=== PATIENT | female | born 1965 | race Caucasian/White ===

== ENCOUNTER 2016-07-20 11:42 | Outpatient (CLI) ==
[2012-10-28 20:28] VITALS: TEMP 98.5
[2016-05-17 21:36] VITALS: BMI 27.8
[2016-07-20 12:55] LABS: BASOPHILS # (AUTO) 0.1 K/uL (0-0.2); BASOPHILS % (AUTO) 0.7 % (0.0-3.0); EOSINOPHILS # (AUTO) 0.2 K/ul (0.0-0.7); EOSINOPHILS % (AUTO) 2.1 % (0.0-7.0); HEMATOCRIT 44.2 % (37.0-47.0); HEMOGLOBIN 15.3 g/dl (12.0-16.0); IMMATURE GRANULOCYTE % (AUTO) 0.4 % (0.0-5.0); LYMPHOCYTES # (AUTO) 2.5 K/uL (0.60-3.4); LYMPHOCYTES % (AUTO) 32.6 (10.0-50.0); MEAN CORPUSCULAR HEMOGLOBIN 30.1 pg (27.0-31.0); MEAN CORPUSCULAR HGB CONC 34.6 (31.8-35.4); MONOCYTES # (AUTO) 0.4 K/uL (0.4-2.0); MONOCYTES % (AUTO) 5.8 (0-10); NEUTROPHILS # (AUTO) 4.4 K/ul (2.0-6.9); NEUTROPHILS % (AUTO) 58.4; PLATELET COUNT 225 10^3/uL (140-440); RED BLOOD COUNT 5.08 10^6/ul (4.20-5.40); WHITE BLOOD COUNT 7.58 K/ul (4.6-10.2)
[2016-07-20 13:10] LABS: ALBUMIN 3.9 g/dL (3.4-5.0); ALBUMIN/GLOBULIN RATIO 1.11; ANION GAP 16.9; BILIRUBIN,TOTAL 0.83 mg/dL (0.00-1.20); BUN/CREATININE RATIO 15.94; CALCIUM 9.6 mg/dL (8.2-10.2); CHOL/HDL RATIO 4.2 (4.5-5.5); CREATININE 0.69 mg/dL (0.60-1.30); POTASSIUM 3.9 mmol/L (3.5-5.10); TOTAL PROTEIN 7.4 g/dL (6.4-8.2)
== END 2016-07-20 11:43 | disposition home or self-care (01) ==
LOC: LAB 11:42
PROVIDERS: ATTEND Nurse Practitioner Family
DX: E11.65 Type 2 diabetes mellitus with hyperglycemia (principal); E11.40 Type 2 diabetes mellitus with diabetic neuropathy, unspecified; E78.5 Hyperlipidemia, unspecified
CPT/HCPCS: 36415; 80053; 80061; 83036; 85025

== ENCOUNTER 2016-07-23 11:35 | Outpatient (CLI) ==
[2012-10-28 20:28] VITALS: TEMP 98.5
[2016-05-17 21:36] VITALS: BMI 27.8
== END 2016-07-23 11:36 | disposition home or self-care (01) ==
LOC: LAB 11:35
PROVIDERS: ATTEND Nurse Practitioner Family
DX: R74.8 Abnormal levels of other serum enzymes (principal)
CPT/HCPCS: 36415; 80074

== ENCOUNTER 2016-08-07 12:11 | Outpatient (CLI) ==
[2012-10-28 20:28] VITALS: TEMP 98.5
[2016-05-17 21:36] VITALS: BMI 27.8
--- NOTE | 2016-08-07 13:47 | DI ---
EXAM: Radiographs, paranasal sinus HISTORY: Chronic sinusitis. COMPARISON: None available. TECHNIQUE: Three-view. FINDINGS/IMPRESSION: Paranasal sinuses are clear. No facial fracture identified.
== END 2016-08-07 12:12 | disposition home or self-care (01) ==
LOC: RAD 12:11
PROVIDERS: ATTEND Otolaryngology
DX: J32.0 Chronic maxillary sinusitis (principal)

== ENCOUNTER 2016-10-26 09:56 | Outpatient (CLI) | payer OTHER ==
[2012-10-28 20:28] VITALS: TEMP 98.5
[2016-05-17 21:36] VITALS: BMI 27.8
[2016-10-26 13:00] LABS: BASOPHILS # (AUTO) 0.1 K/uL (0-0.2); BASOPHILS % (AUTO) 0.8 % (0.0-3.0); EOSINOPHILS # (AUTO) 0.1 K/ul (0.0-0.7); EOSINOPHILS % (AUTO) 1.4 % (0.0-7.0); HEMATOCRIT 45.6 % (37.0-47.0); HEMOGLOBIN 15.8 g/dl (12.0-16.0); IMMATURE GRANULOCYTE % (AUTO) 0.3 % (0.0-5.0); LYMPHOCYTES # (AUTO) 2.3 K/uL (0.60-3.4); LYMPHOCYTES % (AUTO) 23.4 (10.0-50.0); MEAN CORPUSCULAR HEMOGLOBIN 30.7 pg (27.0-31.0); MEAN CORPUSCULAR HGB CONC 34.6 (31.8-35.4); MEAN CORPUSCULAR VOLUME 88.5 fl (81.0-99.0); MONOCYTES # (AUTO) 0.5 K/uL (0.4-2.0); MONOCYTES % (AUTO) 4.7 (0-10); NEUTROPHILS # (AUTO) 6.9 K/ul (2.0-6.9); NEUTROPHILS % (AUTO) 69.4; PLATELET COUNT 239 10^3/uL (140-440); RED BLOOD COUNT 5.15 10^6/ul (4.20-5.40); WHITE BLOOD COUNT 9.87 K/ul (4.6-10.2)
[2016-10-26 13:32] LABS: ALBUMIN/GLOBULIN RATIO 1.11; ANION GAP 14.9; BILIRUBIN,TOTAL 1.56 mg/dL (0.00-1.20); BUN/CREATININE RATIO 25.71; CALCIUM 9.9 mg/dL (8.2-10.2); CHOL/HDL RATIO 3.5 (4.5-5.5); CREATININE 0.7 mg/dL (0.60-1.30); POTASSIUM 3.9 mmol/L (3.5-5.10); TOTAL PROTEIN 7.6 g/dL (6.4-8.2)
== END 2016-10-26 09:57 | disposition home or self-care (01) ==
LOC: LAB 09:56
PROVIDERS: ATTEND Nurse Practitioner Family
DX: E11.65 Type 2 diabetes mellitus with hyperglycemia (principal); E11.40 Type 2 diabetes mellitus with diabetic neuropathy, unspecified; E78.5 Hyperlipidemia, unspecified; R74.8 Abnormal levels of other serum enzymes
CPT/HCPCS: 36415; 80053; 80061; 83036; 85025

== ENCOUNTER 2016-10-30 10:20 | Outpatient (CLI) | payer OTHER ==
[2012-10-28 20:28] VITALS: TEMP 98.5
[2016-05-17 21:36] VITALS: BMI 27.8
--- NOTE | 2016-10-31 09:29 | MAMMO ---
EXAM: Bilateral digital screening mammogram History: Screening Comparison: Bilateral mammogram 03/09/2014 Findings: MLO and CC views of bilateral breasts demonstrate scattered fibroglandular breast parench yma. There are no dominant masses, no suspicious microcalcifications and no architectural distortio ns Impression: Stable negative mammogram. Recommend followup routine screening mammography in 1 year. BIRADS 1
== END 2016-10-30 10:21 | disposition home or self-care (01) ==
LOC: RAD 10:20
PROVIDERS: ATTEND Nurse Practitioner Family
DX: Z12.31 Encounter for screening mammogram for malignant neoplasm of breast (principal)

== ENCOUNTER 2017-02-12 12:54 | Outpatient (CLI) ==
[2012-10-28 20:28] VITALS: TEMP 98.5
[2016-05-17 21:36] VITALS: BMI 27.8
[2017-02-12 13:10] LABS: BASOPHILS % (AUTO) 0.6 % (0.0-3.0); EOSINOPHILS % (AUTO) 0.4 % (0.0-7.0); HEMATOCRIT 41.4 % (37.0-47.0); HEMOGLOBIN 14.6 g/dl (12.0-16.0); IMMATURE GRANULOCYTE % (AUTO) 0.4 % (0.0-5.0); LYMPHOCYTES # (AUTO) 1.8 K/uL (0.60-3.4); LYMPHOCYTES % (AUTO) 25.7 (10.0-50.0); MEAN CORPUSCULAR HEMOGLOBIN 30.5 pg (27.0-31.0); MEAN CORPUSCULAR HGB CONC 35.3 (31.8-35.4); MEAN CORPUSCULAR VOLUME 86.4 fl (81.0-99.0); MONOCYTES # (AUTO) 0.3 K/uL (0.4-2.0); MONOCYTES % (AUTO) 4.6 (0-10); NEUTROPHILS # (AUTO) 4.9 K/ul (2.0-6.9); NEUTROPHILS % (AUTO) 68.3; PLATELET COUNT 200 10^3/uL (140-440); RED BLOOD COUNT 4.79 10^6/ul (4.20-5.40); WHITE BLOOD COUNT 7.16 K/ul (4.6-10.2)
[2017-02-12 13:23] LABS: ALBUMIN 3.6 g/dL (3.4-5.0); ALBUMIN/GLOBULIN RATIO 1.2; BILIRUBIN,TOTAL 1.04 mg/dL (0.00-1.20); BUN/CREATININE RATIO 19.11; CALCIUM 9.1 mg/dL (8.2-10.2); CHOL/HDL RATIO 3.8 (4.5-5.5); CREATININE 0.68 mg/dL (0.60-1.30); TOTAL PROTEIN 6.6 g/dL (6.4-8.2)
== END 2017-02-12 12:55 | disposition home or self-care (01) ==
LOC: LAB 12:54
PROVIDERS: ATTEND Nurse Practitioner Family
DX: E78.5 Hyperlipidemia, unspecified (principal); E11.65 Type 2 diabetes mellitus with hyperglycemia; F32.9 Major depressive disorder, single episode, unspecified
CPT/HCPCS: 36415; 80053; 80061; 83036; 85025

== ENCOUNTER 2017-04-05 12:49 | Outpatient (CLI) ==
[2012-10-28 20:28] VITALS: TEMP 98.5
[2016-05-17 21:36] VITALS: BMI 27.8
[2017-04-05 13:21] LABS: ADD URINE MICROSCOPIC YES; BILIRUBIN,URINE Negative (NEGATIVE); KETONES,URINE Negative (NEGATIVE); LEUKOCYTE ESTERASE ,URINE Negative (NEGATIVE); NITRITE,URINE Negative (NEGATIVE); PROTEIN,URINE Negative (NEGATIVE); URINE, BLOOD Trace-intact (NEGATIVE)
[2017-04-05 13:31] LABS: ALBUMIN 3.5 g/dL (3.4-5.0); ALBUMIN/GLOBULIN RATIO 0.95; ANION GAP 10.9; BACTERIA,URINE TRACE (NOT PRESENT); BILIRUBIN,TOTAL 0.43 mg/dL (0.00-1.20); BUN/CREATININE RATIO 18.66; CALCIUM 9.4 mg/dL (8.2-10.2); CREATININE 0.75 mg/dL (0.60-1.30); POTASSIUM 3.9 mmol/L (3.5-5.10); TOTAL PROTEIN 7.2 g/dL (6.4-8.2)
--- NOTE | 2017-04-05 13:37 | DI ---
EXAM: KUB HISTORY: Difficulties with micturition FINDINGS: Several punctate calcifications over the anatomic pelvis bilaterally may represent phlebol iths. Linear calcifications inferior to the sacroiliac joints probably vascular in nature. No defin ite calcifications are seen over the renal silhouettes. Normal bowel gas pattern. No excessive feca l retention. Degenerative changes of the lumbosacral junction. IMPRESSION: No definite etiology for the patient's symptoms radiographically.
== END 2017-04-05 12:50 | disposition home or self-care (01) ==
LOC: LAB 12:49
PROVIDERS: ATTEND Nurse Practitioner Family
DX: R39.198 Other difficulties with micturition (principal); R81 Glycosuria; H53.8 Other visual disturbances; R42 Dizziness and giddiness
CPT/HCPCS: 36415; 80053; 81001

== ENCOUNTER 2017-06-10 12:45 | Outpatient (CLI) ==
[2012-10-28 20:28] VITALS: TEMP 98.5
[2016-05-17 21:36] VITALS: BMI 27.8
== END 2017-06-10 12:46 | disposition home or self-care (01) ==
LOC: LAB 12:45
PROVIDERS: ATTEND Nurse Practitioner Family
DX: E11.65 Type 2 diabetes mellitus with hyperglycemia (principal); E11.40 Type 2 diabetes mellitus with diabetic neuropathy, unspecified; E78.5 Hyperlipidemia, unspecified
CPT/HCPCS: 36415; 80053; 80061; 83036

== ENCOUNTER 2017-06-14 10:46 | Outpatient (CLI) ==
[2012-10-28 20:28] VITALS: TEMP 98.5
[2016-05-17 21:36] VITALS: BMI 27.8
--- NOTE | 2017-06-14 11:26 | CT ---
EXAM: CT chest without contrast HISTORY: Cough COMPARISON: Chest x-ray 05/18/2014 and multiple priors TECHNIQUE: Serial axial images of the chest were obtained from the lung apices to the upper abdomen without contrast. These were viewed in multiple planes. FINDINGS: The thyroid is normal. The visualized vessels demonstrate mild atherosclerotic disease wi thout aneurysm or stenosis. The heart is normal in size without pericardial effusion. There are mul tiple nonpathologically enlarged lymph nodes. No axillary lymphadenopathy is present. There is no pneumothorax or pleural effusion. There is no consolidation, nodule or mass. The airway s are patent. Limited views of the soft tissues in the upper abdomen demonstrate prior cholecystectomy. The osseou s structures demonstrate mild degenerative disease of the spine. IMPRESSION: 1. No acute cardiopulmonary process or consolidation to account for patient's symptoms. 2. Prior cholecystectomy
== END 2017-06-14 10:47 | disposition home or self-care (01) ==
LOC: RAD 10:46
PROVIDERS: ATTEND Nurse Practitioner Family
DX: R05 Cough (principal); F17.200 Nicotine dependence, unspecified, uncomplicated

== ENCOUNTER 2017-07-19 10:42 | Outpatient (CLI) ==
[2012-10-28 20:28] VITALS: TEMP 98.5
[2016-05-17 21:36] VITALS: BMI 27.8
--- NOTE | 2017-07-19 13:30 | MRI ---
EXAM: Brain MRI without contrast. HISTORY: Amnesia. COMPARISON: None. TECHNIQUE: Multiplanar, multisequence MR images were acquired of the brain without contrast. FINDINGS: The midline structures are central and the craniocervical junction is unremarkable. The ve ntricles, sulci and cisterns are generally prominent compatible with age related involutional changes . There is a small acute infarct with diffusion restriction and bright T2 signal in the left frontal pe riventricular white matter, a small grouping of acute infarcts in the posterior superior right fronta l lobe, a moderate acute right parieto-occipital lobe infarct with local sulcal effacement and a smal l amount of hyperintense T1, intermediate T2 signal and minor blooming on the gradient echo signal se quence compatible with petechial hemorrhage. There are also small foci of subacute ischemia with fad ing diffusion restriction and mild bright T2 signal in the anterior superior right frontal lobe (imag e #16), possibly anterior superior left frontal lobe (image #18), right cerebellum (image #6) and med ial left middle cerebellar peduncle. A few scattered T2 / FLAIR hyperintensities are present in the s upratentorial white matter compatible with minimal leukomalacia. There are chronic lacunes in the ri ght basal ganglia, left posterior parietal periventricular white matter and left parietal subcortical white matter extending to the atrial trigone. The corpus callosum has a normal configuration. The p ituitary gland is unremarkable. There are no intraorbital masses. Paranasal sinuses are clear. There is mucosal thickening and flui d in a moderate number of the left mastoid air cells and a minor number of the right. Mild adenoidal hypertrophy is present with several nasopharyngeal submucosal cyst. Flow voids are present in the major intracranial arteries and dural venous sinuses. IMPRESSION: 1. Moderate acute right parieto-occipital infarct with mild hemorrhagic conversion, small acute infa rct left frontal periventricular white matter and small grouping of acute infarcts posterior superior right frontal lobe. Critical results discussed with the emergency room physician caring for the pat ient at 1:10 p.m. and with the referring nurse practitioner's nurse at 1:06 p.m. 2. Small foci of subacute ischemia anterior superior right frontal lobe, possibly anterior superior left frontal lobe, right cerebellum and medial left middle cerebellar peduncle. 3. Chronic lacunes right basal ganglia and left posterior parietal periventricular and subcortical w hoda matter. 4. Age related involutional changes and minimal leukomalacia. 5. Moderate left and minor right mastoid disease.
== END 2017-07-19 10:43 | disposition home or self-care (01) ==
LOC: RAD 10:42
PROVIDERS: ATTEND Nurse Practitioner Family
DX: R41.3 Other amnesia (principal); R42 Dizziness and giddiness; R30.0 Dysuria; Z86.73 Personal history of transient ischemic attack (TIA), and cerebral infarction without residual deficits
CPT/HCPCS: 36415; 80053; 81001; 85025

== ENCOUNTER 2017-07-19 12:47 | Emergency (ER) ==
[2017-07-19 12:58] VITALS: BP 141/79; TEMP 97.8; BMI 26.9
--- NOTE | 2017-07-19 13:00 | ED.PDOC ---
General ED Provider: Dr. CAROLIN IBRAHIM Chief Complaint: Stroke Stated Complaint: CVA Time Seen by Physician: 12:48 (PT BROUGHT BY ATTENDING STATING HAS A POSTIVE FINDING ON MRI FOR CVA) Mode of Arrival: Wheelchair Information Source: Family, Other Exam Limitations: No limitations (AOX3 WITH HISTORY OF FREQUENT FALLS AND ERRATIC DRIVING ) Primary Care Provider: WILLIAM SAN Nursing and Triage Documentation Reviewed and Agree: Yes Reviewed sepsis parameters & appropriate labs ordered?: No System Inflammatory Response Syndrome: Not Applicable Sepsis Protocol: For patient's 13 years and over: Temp is 96.8 and below OR 101 and greater Pulse >90 BPM Resp >20/minute Acutely Altered Mental Status Are patient's symptoms suggestive of a new infection, such as: -Pneumonia -Skin, Soft Tissue -Endocarditis -UTI -Bone, Joint Infection -Implantable Device -Acute Abdominal Infection -Wound Infection -Meningitis -Blood Stream Catheter Infection -Unknown System Inflammatory Response Syndrome: Not Applicable Miscellaneous Complaint Exam - Complex/Multi-System Complaint/Exam Onset/Duration: APPROX 2 WEEKS Symptoms Are: Still present Initial Severity: Mild Current Severity: Mild Location of Pain: NO Pain Radiates to: NO Aggravating: CVA Alleviating: NONEE Associated Signs and Symptoms: Denies: Decreased responsiveness, Confusion, Agitation, Dizziness, Weakness, Syncope, Headache, Short of air, Cough, Wheezing , Hemoptysis, Chest pain, Palpitations, Edema, Nausea, Vomiting, Diarrhea, Abdominal pain, Back pain, Dysuria, Hematemesis, Melena, Decreased oral intake, Fever, Diaphoresis, Immunocompromised, Anticoagulation Therapy, Recent medication changes, Indwelling medical receptionist, Prior MRSA, Prior VRE, Recent trauma, Remote trauma Related History: Recent Illness Recent Echo/LV Function: No Respiratory Distress: None JVD Present: No Tachypnea Present: No Stridor Present: No Abdominal Findings: Present: Normal findings Glascow Coma Scale (see protocol): 15 Meningeal Signs Positive: No Focal Weakness: Present: None Focal Sensory Loss: Present: None Gait: Normal Gag Reflex Present: Yes Babinski Sign: Negative Right, Negative Left Skin Findings: Present: Normal findings Joint Swelling Present: No In-Dwelling Device Present: No Differential Diagnosis: Metabolic Abnormality Quality Indicators for Cardiac Chest Pain: EKG in 10min. Quality Indicators for AMI: EKG in 10min. Quality Indicator For Non-Traumatic Chest Pain/Syncope: EKG Performed Review of Systems - Review Of Systems Constitutional: Reports: No symptoms Eyes: Reports: No symptoms Ears, Nose, Mouth, Throat: Reports: No symptoms Respiratory: Reports: No symptoms Cardiac: Reports: No symptoms GI: Reports: No symptoms : Reports: No symptoms Musculoskeletal: Reports: No symptoms Skin: Reports: No symptoms Neurological: Reports: No symptoms Endocrine: Reports: No symptoms Hematologic/Lymphatic: Reports: No symptoms All Other Systems: Reviewed and Negative Past Medical History - Past Medical History Previously Healthy: No Endocrine: Reports: DM 2 Cardiovascular: Reports: None Respiratory: Reports: None Hematological: Reports: None Gastrointestinal: Reports: None Genitourinary: Reports: None Neuro/Psych: Reports: Anxiety, Depression Musculoskeletal: Reports: Arthritis Cancer: Reports: None Last Menstrual Period: unknown, post menopausal - Surgical History General Surgical History: Reports: None - Family History Family History: Reports: Diabetes - Social History Smoking Status: Current every day smoker, Heavy tobacco smoker Hx Substance Use: No Alcohol Screening: None Physical Exam - Physical Exam Appearance: Well-appearing, No pain distress, Well-nourished Eyes: GREGORIO, EOMI, Conjunctiva clear ENT: Ears normal, Nose normal, Oropharynx normal Respiratory: Airway patent, Breath sounds clear, Breath sounds equal, Respirations nonlabored Cardiovascular: RRR, Pulses normal, No rub, No murmur GI/: Soft, Nontender, No masses, Bowel sounds normal, No Organomegaly Musculoskeletal: Normal strength, ROM intact, No edema, No calf tenderness Skin: Warm, Dry, Normal color Neurological: Sensation intact, Motor intact, Reflexes intact, Cranial nerves intact, Alert, Oriented Psychiatric: Affect appropriate, Mood appropriate Interpretation - Radiology Interpretation Radiology Interpretation By: Radiologist Physician Notification - Case Discussed Physician Notified: SALVATORE Time of Notification: 13:40 (PT ACCEPTED BY HIM BUT MUST TALK TO HOSPITALIST) Critical Care Note - Critical Care Note Total Time (mins): 0 Course - Course Orders, Labs, Meds: Orders Category Date Time Status EKG-(ED ONLY) Stat CARDIO 07/19/17 12:57 Completed PARTIAL THROMBOPLASTIN TIME Stat LAB 07/19/17 13:05 Received PT WITH INR Stat LAB 07/19/17 13:05 Received Vital Signs: Temp Pulse Resp BP Pulse Ox 07/19/17 12:48 97.8 F 90 20 141/79 H 93 L Departure - Departure Time of Disposition: 15:00 Disposition: TSF SHORT-TRM HOSP Discharge Problem: CVA (cerebral vascular accident) Qualifiers: CVA mechanism: unspecified Qualified Code(s): I63.9 - Cerebral infarction, unspecified Instructions: Stroke (DC) Condition: Good Pt referred to PMD for follow-up: Yes IPMP verified?: No Additional Instructions: Please call your Family Physician as soon as possible to schedule a follow-up appointment. Allergies/Adverse Reactions: Allergies codeine Allergy (Mild, Verified 07/19/17 13:01) nausea Home Medications: Ambulatory Orders Hydrocodone/Acetaminophen [[place] 7.5-325 Tablet] 1 each PO BID PRN 01/10/15 Cyclobenzaprine HCl [Flexeril] 10 mg PO BID PRN 05/17/16 Gabapentin [Neurontin] 200 mg PO TID PRN 05/17/16 Butalb/Acetaminophen/Caffeine [Fioricet 50-300-40 Mg Capsule] 1 each PO Q4-6H PRN #50 08/07/16 Disposition Discussed With: Patient, Family
== END 2017-07-19 14:05 | disposition short-term general hospital (02) ==
LOC: ED 12:47
DX: I63.9 Cerebral infarction, unspecified (principal); F17.210 Nicotine dependence, cigarettes, uncomplicated; I10 Essential (primary) hypertension; E11.9 Type 2 diabetes mellitus without complications
CPT/HCPCS: 36415; 85610; 85730; 93005; 93010; 99285

== ENCOUNTER 2017-09-06 11:36 | Outpatient (CLI) ==
[2012-10-28 20:28] VITALS: TEMP 98.5
== END 2017-09-06 11:37 | disposition home or self-care (01) ==
LOC: FCC-LAB 11:36
PROVIDERS: ATTEND Nurse Practitioner Family
DX: E11.65 Type 2 diabetes mellitus with hyperglycemia (principal); E78.5 Hyperlipidemia, unspecified
CPT/HCPCS: 36415; 80053; 80061; 82150; 83037; 83690; 85025

== ENCOUNTER 2017-09-09 10:17 | Outpatient (CLI) ==
[2012-10-28 20:28] VITALS: TEMP 98.5
--- NOTE | 2017-09-09 11:35 | US ---
EXAM: Thyroid ultrasound History: Thyroid nodules. Comparison: None available. Technique: Multiple sonographic images through the thyroid gland were obtained. Color duplex Dopple r was used to interrogate vascular flow. Findings: The right lobe of the thyroid measures 5.1 cm x 1.6 cm x 1.9 cm and demonstrates a few small sub-cent imeter nodules with the largest measuring 0.4 cm. The thyroid isthmus measures 0.3 cm in thickness. The left lobe of the thyroid measures 4.6 cm x 1.7 cm x 2.1 cm and demonstrates a dominant complex no dule measuring 1.9 cm. No extrathyroidal masses are identified. The thyroid gland is not hypervascular. Impression: 1.9 cm dominant complex nodule within the left thyroid lobe.
== END 2017-09-09 10:18 | disposition home or self-care (01) ==
LOC: RAD 10:17
PROVIDERS: ATTEND Nurse Practitioner Family
DX: E04.1 Nontoxic single thyroid nodule (principal)
CPT/HCPCS: 36415; 84439; 84443

== ENCOUNTER 2017-11-13 10:47 | Outpatient (CLI) ==
[2012-10-28 20:28] VITALS: TEMP 98.5
== END 2017-11-13 10:48 | disposition home or self-care (01) ==
LOC: RHC-LAB 10:47
PROVIDERS: ATTEND Nurse Practitioner Family
DX: I63.133 Cerebral infarction due to embolism of bilateral carotid arteries (principal); E11.65 Type 2 diabetes mellitus with hyperglycemia; E78.5 Hyperlipidemia, unspecified; F41.8 Other specified anxiety disorders; Z79.899 Other long term (current) drug therapy
CPT/HCPCS: 36415; 80053; 80061; 82607; 83037; 84436; 84443; 84479; 85025; 85651

== ENCOUNTER 2018-01-30 08:08 | Outpatient (CLI) ==
[2012-10-28 20:28] VITALS: TEMP 98.5
== END 2018-01-30 08:09 | disposition home or self-care (01) ==
LOC: LAB 08:08
PROVIDERS: ATTEND Nurse Practitioner Family
DX: E11.65 Type 2 diabetes mellitus with hyperglycemia (principal); E55.9 Vitamin D deficiency, unspecified; E78.5 Hyperlipidemia, unspecified
CPT/HCPCS: 36415; 80053; 80061; 82306; 83036

== ENCOUNTER 2018-07-05 14:34 | Emergency (ER) | payer OTHER ==
[2018-07-05 14:42] VITALS: TEMP 97.6; BMI 25.7
[2018-07-05 15:13] VITALS: BP 150/82
--- NOTE | 2018-07-05 15:33 | DI ---
Exam: Single view chest x-ray. Date: 07/05/2018. Comparison: 05/18/2014. HISTORY: Cough. FINDINGS: No acute osseous abnormalities are seen. The lungs are clear. The cardiac silhouette and pulmonary vasculature are normal. Impression: No acute intrathoracic findings.
--- NOTE | 2018-07-05 15:36 | CT ---
EXAM: CT scan of head without contrast. HISTORY: TIA, cerebrovascular accident COMPARISON: MRI, 07/19/2017 TECHNIQUE: Axial scans acquired at 5 mm slice thicknesses. Coronal and sagittal sequence completed FINDINGS: There is no intra or extra-axial hemorrhage seen. No mass or shift of midline structures is seen. There is some mild cortical atrophy involving the frontal and parietal lobes. There is dec reased attenuation seen in the periventricular matter consistent with chronic microvascular ischemic changes small area decreased attenuation right thalamus consist with prior infarct. Moderate sized a bolivar of the encephalomalacia right parietal occipital lobe consistent with prior infarct similar distr ibution compared previous MRI. No acute large vessel cerebrovascular accident.. Minimal dilatation of the posterior horn right ventricle adjacent to the area of prior infarct. Posterior fossa structu res show no acute findings.. Small left mastoid effusion suggested. No air-fluid level in the sinus es.. There are no air-fluid levels visualized sinuses and no opacification mastoid air cells is seen . IMPRESSION: 1. No acute intracranial finding is seen. 2. No intracranial hemorrhage or acute large vessel cerebrovascular accident identified. There is e ncephalomalacia in the right prior occipital lobe consist with prior infarctions similar distribution compared previous MRI, 07/19/2017. Some decreased attenuation seen at the level the right thalamus consist with old infarct. Prominent atherosclerotic calcification cavernous internal carotid arterie s. 3. Age appropriate cortical atrophy is seen as well as some chronic white matter ischemic changes.
--- NOTE | 2018-07-05 15:54 | ED.PDOC ---
General ED Provider: Dr. CAROLIN IBRAHIM Chief Complaint: Stroke Stated Complaint: TIA Time Seen by Physician: 14:35 (WOKE UP 4 AM WITH SOME HEADACHE DID NOT FEEL LIKE HERSELF AND ARM TINGLING) Mode of Arrival: Walk-In Information Source: Patient Exam Limitations: No limitations Primary Care Provider: RAYMUNDO MOTTA Nursing and Triage Documentation Reviewed and Agree: Yes Does patient meet sepsis criteria?: No System Inflammatory Response Syndrome: Not Applicable Sepsis Protocol: For patient's 13 years and over: Temp is 96.8 and below OR 101 and greater Pulse >90 BPM Resp >20/minute Acutely Altered Mental Status Are patient's symptoms suggestive of a new infection, such as: -Pneumonia -Skin, Soft Tissue -Endocarditis -UTI -Bone, Joint Infection -Implantable Device -Acute Abdominal Infection -Wound Infection -Meningitis -Blood Stream Catheter Infection -Unknown Neurological Complaint Exam - Weakness Complaint/Exam Last Known Well: 4AM THE EPISODE DID NOT LEAVE ANY MOTOR OR SENSORY WEAKNESS Onset: Sudden Duration: 4 AM Symptoms Are: Resolved Initial Severity: Mild Current Severity: None Character: Reports: Unable to describe Aggravating: Reports: None Alleviating: Reports: None Associated Signs and Symptoms: Denies: Nausea, Vomiting, Diaphoresis, Tinnitus, Chest pain, Short of air, Palpitations, Unsteady gait, GI blood loss, Visual changes, Decreased oral intake, Change in medication, Change in diet, OTC meds, Loss of balance Review of Systems - Review Of Systems Constitutional: Reports: No symptoms Eyes: Reports: No symptoms Ears, Nose, Mouth, Throat: Reports: No symptoms Respiratory: Reports: No symptoms Cardiac: Reports: No symptoms GI: Reports: No symptoms : Reports: No symptoms Musculoskeletal: Reports: No symptoms Skin: Reports: No symptoms Neurological: Reports: No symptoms Endocrine: Reports: No symptoms Hematologic/Lymphatic: Reports: No symptoms All Other Systems: Reviewed and Negative Past Medical History - Past Medical History Previously Healthy: No Endocrine: Reports: DM 2 Cardiovascular: Reports: None Respiratory: Reports: None Hematological: Reports: None Gastrointestinal: Reports: None Genitourinary: Reports: None Neuro/Psych: Reports: Anxiety, Depression Musculoskeletal: Reports: Arthritis Cancer: Reports: None Last Menstrual Period: 2014 - Surgical History General Surgical History: Reports: None - Family History Family History: Reports: Diabetes - Social History Smoking Status: Current every day smoker, Heavy tobacco smoker Hx Substance Use: No Alcohol Screening: None - Immunizations Tetanus Shot up to Date: Yes Physical Exam - Physical Exam Appearance: Well-appearing, No pain distress, Well-nourished Eyes: GREGORIO, EOMI, Conjunctiva clear ENT: Ears normal, Nose normal, Oropharynx normal Respiratory: Airway patent, Breath sounds clear, Breath sounds equal, Respirations nonlabored Cardiovascular: RRR, Pulses normal, No rub, No murmur GI/: Soft, Nontender, No masses, Bowel sounds normal, No Organomegaly Musculoskeletal: Normal strength, ROM intact, No edema, No calf tenderness Skin: Warm, Dry, Normal color Neurological: Sensation intact, Motor intact, Reflexes intact, Cranial nerves intact, Alert, Oriented Psychiatric: Affect appropriate, Mood appropriate - NIH Stroke Scale 1a. Level of Consciousness: 0=Alert and keenly responsive 1b. Level of Consciousness Questions: 0=Answers correctly to two questions 1c. Level of Consciousness Commands: 0=Performs two tasks correctly 2. Best Gaze: 0=Normal 3. Visual: 0=No visual loss 4. Facial Palsy: 0=Normal 5a. Motor Left Arm: 0=No drift,arm holds 90 degrees for 10 sec., leg 30 degrees for 5 sec. 5b. Motor Right Arm: 0=No drift,arm holds 90 degrees for 10 sec., leg 30 degrees for 5 sec. 6a. Motor Left Le=No drift,arm holds 90 degrees for 10 sec., leg 30 degrees for 5 sec. 6b. Motor Right Le=No drift,arm holds 90 degrees for 10 sec., leg 30 degrees for 5 sec. 7. Limb Ataxia: 0=Absent 8. Sensory: 0=Normal 9. Best Language: 0=No aphasia 10. Dysarthria: 0=Normal 11. Extincion and Inattention: 0=Normal Stroke Scale Total: 0 Interpretation - Radiology Interpretation Radiology Interpretation By: Radiologist Radiology Results: No acute changes Exam Interpreted: CT Scan - Furnace Mechanic Helper Rate: Normal - EKG Interpretation Rate: Normal Rhythm: Sinus Re-Evaluation - Re-Evaluation Time of Re-Evaluation: 15:00 Status: Improved Vital Signs Stable: Yes Pain Level: 0 Appearance: NAD Lungs: Clear Skin: Warm and Dry Neuro: Alert and Oriented X3 CV: RRR - Re-Evaluation Time of Re-Evaluation: 16:00 Status: Improved Vital Signs Stable: Yes Pain Level: 0 Appearance: NAD Skin: Warm and Dry Neuro: Alert and Oriented X3 CV: RRR (NO STROKE SYMPTOMS NOTED) Physician Notification - Case Discussed Physician Notified: PMD Time of Notification: 16:00 (PT MAY GO HOME WITH FOLLOW UP WITH HIM ON MODAY) Critical Care Note - Critical Care Note Total Time (mins): 0 Course - Course Hematology/Chemistry: 07/05/18 14:52 07/05/18 14:52 Orders, Labs, Meds: Lab Review 07/05/18 07/05/18 07/05/18 14:52 14:52 14:52 WBC 6.78 RBC 4.65 Hgb 14.0 Hct 40.5 MCV 87.1 MCH 30.1 MCHC 34.6 RDW Coeff of Ritu 12.6 Plt Count 199 Immature Gran % (Auto) 0.3 Neut % (Auto) 53.4 Lymph % (Auto) 37.2 [place] % (Auto) 6.2 Eos % (Auto) 2.2 Baso % (Auto) 0.7 Immature Gran # (Auto) 0.0 Neut # (Auto) 3.6 Lymph # (Auto) 2.5 [place] # (Auto) 0.4 Eos # (Auto) 0.2 Baso # (Auto) 0.1 PT 9.1 L INR 0.91 APTT 22.6 L Sodium 138.9 Potassium 3.91 Chloride 104.7 Carbon Dioxide 25.2 Anion Gap 12.91 BUN 16.9 Creatinine 0.90 Estimated GFR (MDRD) 65.00 BUN/Creatinine Ratio 18.77 Glucose 315.7 H Calcium 8.73 Total Bilirubin 0.70 AST 17.0 ALT 16.5 Alkaline Phosphatase 80.8 Total Creatine Kinase 27.8 L Troponin I < 0.012 Total Protein 6.61 Albumin 3.90 Globulin 2.71 Albumin/Globulin Ratio 1.43 Orders Category Date Time Status EKG-(ED ONLY) Stat CARDIO 07/05/18 14:51 Ordered CBC W/ AUTO DIFF Stat LAB 07/05/18 14:50 Ordered COMPREHENSIVE METABOLIC PANEL Stat LAB 07/05/18 14:50 Ordered CREATINE KINASE Stat LAB 07/05/18 14:50 Ordered PARTIAL THROMBOPLASTIN TIME Stat LAB 07/05/18 14:51 Ordered PT WITH INR Stat LAB 07/05/18 14:51 Ordered TROPONIN I Stat LAB 07/05/18 14:50 Ordered CHEST, 1V AP ONLY Stat RADS 07/05/18 14:[address] HEAD W/O CONTRAST Stat RADS 07/05/18 14:51 Ordered Vital Signs: Temp Pulse Resp BP Pulse Ox 07/05/18 15:12 80 22 150/82 H 97 07/05/18 14:35 97.6 F 82 16 165/91 H 97 Departure - Departure Time of Disposition: 15:57 Disposition: HOME SELF-CARE Discharge Problem: Uncontrolled diabetes mellitus Qualifiers: Diabetes mellitus type: other specified (including SOLA) Glycemic state: with hyperglycemia Qualified Code(s): E13.65 - Other specified diabetes mellitus with hyperglycemia Instructions: Type 2 Diabetes in the Older Adult (ED) Condition: Good Pt referred to PMD for follow-up: Yes IPMP verified?: No Additional Instructions: Please call your Family Physician as soon as possible to schedule a follow-up appointment. Allergies/Adverse Reactions: Allergies codeine Allergy (Mild, Verified 07/05/18 14:41) nausea Home Medications: Ambulatory Orders Hydrocodone/Acetaminophen [[place] 7.5-325 Tablet] 1 each PO BID PRN 01/10/15 Cyclobenzaprine HCl [Flexeril] 10 mg PO BID PRN 05/17/16 Gabapentin [Neurontin] 200 mg PO TID PRN 05/17/16 Disposition Discussed With: Patient
== END 2018-07-05 16:27 | disposition home or self-care (01) ==
LOC: ED 14:34
DX: I63.9 Cerebral infarction, unspecified (principal); G45.9 Transient cerebral ischemic attack, unspecified; R51 Headache; R20.2 Paresthesia of skin; Z72.0 Tobacco use; E13.65 Other specified diabetes mellitus with hyperglycemia
CPT/HCPCS: 36415; 80053; 81001; 82550; 84484; 85025; 85610; 85730; 93005; 93010; 99283

== ENCOUNTER 2018-08-22 10:46 | Outpatient (CLI) ==
[2012-10-28 20:28] VITALS: TEMP 98.5
--- NOTE | 2018-08-22 12:51 | DI ---
EXAM: Lumbar spine three view HISTORY: Spinal stenosis COMPARISON: None TECHNIQUE: Three views lumbar spine were performed FINDINGS: Sacroiliac joints intact. Sacral arcuate lines intact. Vertebral bodies normal height. No fracture. Multilevel marginal osteophyte formation. Mild intervertebral disc space narrowing L4- L5. Moderate to severe intervertebral disc space narrowing L5-S1. Multilevel facet arthrosis. Bila teral pars defects L5 with 8 mm anterolisthesis of L5 on S1. Atherosclerotic vascular calcification. IMPRESSION: 1. Bilateral pars defects of L5 with 8 mm anterolisthesis of L5 on S1. 2. Chronic discogenic degenerative disease and facet arthrosis.
--- NOTE | 2018-08-22 12:52 | DI ---
EXAM: Local spine three view HISTORY: Radiculopathy COMPARISON: None TECHNIQUE: Three views cervical spine were performed FINDINGS: C7 obscured on the lateral view. Visualized vertebral bodies normal height. No fracture identified. Straightening of the normal cervical lordosis. No subluxation identified. Multilevel m arginal osteophyte formation. Moderate intervertebral disc space narrowing C5-C6. Multilevel facet and uncovertebral hypertrophy. Carotid calcifications, right greater than left. IMPRESSION: 1. Chronic discogenic degenerative disease and facet arthrosis. 2. Straightening of the normal cervical lordosis.
--- NOTE | 2018-08-22 22:35 | MRI ---
EXAM: Lumbar spine MRI without contrast. HISTORY: Spinal stenosis. COMPARISON: Lumbar spine radiographs 08/22/2018 and lumbar spine MRI 08/20/2014. TECHNIQUE: Multiplanar, multisequence MR images were acquired of the lumbar spine without contrast. FINDINGS: Five non-rib bearing lumbar vertebra are present. Conus medullaris ends at L1 and has nor mal morphology and signal intensity. The lumbar vertebra are normal in height. There is minor thora columbar dextroscoliosis centered at L2-3 and there is exaggeration of the usual lumbar lordosis. Th ere is 8.5 mm anterolisthesis of L5 on S1, increased from previously where it measured 7.8 mm. As be fore, there are chronic bilateral L5 pars interarticularis defects. There is desiccation of the lumb ar intervertebral discs and there is mild L4-5 and moderate L5-S1 disc space narrowing with minor irr egular concavity of the endplates and a tiny chronic Schmorl's node along the L5 in the inferior endp late. The disc space narrowing has mildly progressed compared to previously. The partially visualized liver, spleen and kidneys are unremarkable. The adrenal glands are not well seen due to respiratory motion. T12-L1: The intervertebral disc is normal. L1-2: The intervertebral disc is normal. L2-3: The intervertebral disc is normal. There is minor right facet arthropathy. L3-4: The intervertebral disc is normal. There is minor bilateral facet arthropathy and a tiny left facet effusion. L4-5: There is a minor disc bulge that is asymmetric to the right and mild bilateral facet arthropat hy and ligamentum flavum hypertrophy. There is minor left neural foraminal stenosis. L5-S1: There is 8.5 mm anterolisthesis of L5 on S1 due to chronic bilateral L5 pars interarticularis defects. This has mildly progressed compared to previously. There is a diffuse spondylotic disc bu lge and severe bilateral neural foraminal stenosis with compression of both L5 nerves. This has also progressed compared to previously. There is tapering of the thecal sac at this level without additi onal stenosis. IMPRESSION: 1. 8.5 mm anterolisthesis L5 on S1 due to chronic bilateral L5 pars interarticularis defects which h as mildly increased compared to previously. 2. Severe bilateral foraminal stenosis L5-S1 with compression of both L5 nerves which has mildly pro gressed compared to the prior MRI. 3. No lumbar central canal stenosis.
== END 2018-08-22 10:47 | disposition home or self-care (01) ==
LOC: RAD 10:46
PROVIDERS: ATTEND Pain Medicine Interventional Pain Medicine
DX: M51.16 Intervertebral disc disorders with radiculopathy, lumbar region (principal); M51.17 Intervertebral disc disorders with radiculopathy, lumbosacral region; M48.07 Spinal stenosis, lumbosacral region; M47.816 Spondylosis without myelopathy or radiculopathy, lumbar region; M47.817 Spondylosis without myelopathy or radiculopathy, lumbosacral region; M54.12 Radiculopathy, cervical region; M50.320 Other cervical disc degeneration, mid-cervical region, unspecified level; M47.812 Spondylosis without myelopathy or radiculopathy, cervical region

== ENCOUNTER 2018-09-24 10:34 | Outpatient (CLI) ==
[2012-10-28 20:28] VITALS: TEMP 98.5
== END 2018-09-24 10:35 | disposition home or self-care (01) ==
LOC: RHC-LAB 10:34 → FCC-LAB 10:35
PROVIDERS: ATTEND Family Medicine
DX: E11.9 Type 2 diabetes mellitus without complications (principal); E78.5 Hyperlipidemia, unspecified; I10 Essential (primary) hypertension; F17.200 Nicotine dependence, unspecified, uncomplicated
CPT/HCPCS: 36415; 80053; 80061; 82043; 83037; 85025

== ENCOUNTER 2018-12-25 10:59 | Outpatient (CLI) ==
[2012-10-28 20:28] VITALS: TEMP 98.5
[2018-12-25 08:40] VITALS: BMI 24.1
== END 2018-12-25 11:22 | disposition short-term general hospital (02) ==
LOC: AMBL 10:59
PROVIDERS: ATTEND Internal Medicine Geriatric Medicine
DX: R68.89 Other general symptoms and signs (principal); Z86.73 Personal history of transient ischemic attack (TIA), and cerebral infarction without residual deficits